=== PATIENT | male | born 1980 | race Caucasian/White ===

== ENCOUNTER 2018-08-20 12:36 | Emergency (ER) | payer SELFPAY ==
[2018-08-20] MEDS ORDERED: TETANUS/DIPHTHERIA/PERTUSSIS 0.5 ML SYRINGE IM ONE (12:55)
[2018-08-20] MEDS ORDERED: BACITRACIN OINT TOP ONE (13:12)
--- NOTE | 2018-08-20 13:40 | ED Physician Documentation ---
PD HPI HEAD INJURY - Stated complaint Stated Complaint: HEAD INJ - Chief complaint Chief Complaint: Trauma Hd/Nk - History obtained from History obtained from: Patient - History of Present Illness Mechanism of head injury: Other (stood up and hit head on nail) Where head injury occurred: Home Timing - onset: How many hours ago (1) Pain level max: 4 Pain level now: 1 Location of injury: Top Quality of pain: Aching, Dull Associated symptoms: No: LOC, AMS, Amnesia, Nausea / vomiting, Neck pain, Paresthesias, Seizures, Ear drainage, Nasal drainage Symptoms improve with: Rest Symptoms worsen with: Palpation Contributing factors: No: Anticoagulated, Intoxicated - Additional information Additional information: Patient used glue to close the wound on his head. Unknown last tetanus shot Review of Systems Constitutional: denies: Fever, Chills Musculoskeletal: denies: Neck pain, Back pain Neurologic: denies: Confused, Altered mental status, LOC PD PAST MEDICAL HISTORY - Past Medical History Past Medical History: No - Past Surgical History Past Surgical History: No - Allergies Allergies/Adverse Reactions: Allergies Allergy/AdvReac Type Severity Reaction Status Date / Time acetaminophen [From Vicodin] AdvReac Hives Verified 08/20/18 12:45 hydrocodone [From Vicodin] AdvReac Hives Verified 08/20/18 12:45 - Social History Does the pt smoke?: Yes Smoking Status: Current every day smoker Does the pt drink ETOH?: Yes Does the pt have substance abuse?: No - Immunizations Immunizations: TDAP >10years/unknown PD ED PE NORMAL - Vitals Vital signs reviewed: Yes - General General: Alert and oriented X 3, No acute distress - HEENT HEENT: PERRL, Moist mucous membranes, Other (Abrasion to the crown of the head. No palpable skull fractures. No hematomas.) - Neck Neck: Supple, no meningeal sign, No bony TTP - Derm Derm: Warm and dry - Neuro Neuro: Alert and oriented X 3 Results - Vitals Vitals: Vital Signs - 24 hr 08/20/18 08/20/18 12:45 13:44 Temperature 36.8 C Heart Rate 90 68 Respiratory 16 14 Rate Blood Pressure 126/74 118/68 O2 Saturation 98 98 Oxygen O2 Source Room air PD MEDICAL DECISION MAKING - ED course Complexity details: considered differential, d/w patient ED course: Tdap given. Wound was cleansed. No bleeding. Slight abrasion. No repair needed. No evidence of skull fracture or intracranial hemorrhage. Patient counseled regarding signs and symptoms for which I believe and urgent re- evaluation would be necessary. Patient with good understanding of and agreement to plan and is comfortable going home at this time This document was made in part using voice recognition software. While efforts are made to proofread this document, sound alike and grammatical errors may occur. Departure - Departure Disposition: 01 Home, Self Care Clinical Impression: Scalp abrasion Qualifiers: Encounter type: initial encounter Qualified Code(s): S00.01XA - Abrasion of scalp, initial encounter Condition: Good Instructions: ED Abrasion Follow-Up: your,doctor as needed [Other] Comments: Return if you notice redness, swelling or drainage from the wound. You were given a tetanus shot today. You may wash your hair normally. Discharge Date/Time: 08/20/18 13:45
[2018-08-20 13:45] VITALS: BP 118/68
== END 2018-08-20 13:45 | disposition home or self-care (01) ==
LOC: ED 12:36
DX: S00.01XA Abrasion of scalp, initial encounter (principal); W45.0XXA Nail entering through skin, initial encounter; W22.8XXA Striking against or struck by other objects, initial encounter; Y93.89 Activity, other specified; Y92.008 Other place in unspecified non-institutional (private) residence as the place of occurrence of the external cause; Z23 Encounter for immunization; F17.200 Nicotine dependence, unspecified, uncomplicated
CPT/HCPCS: 90471; 90715; 99283; A9270; 96372